=== PATIENT | male | born 1985 | race American Indian/Alaskan Native ===

== ENCOUNTER 2017-11-29 14:49 | Emergency (ER) | payer SELFPAY ==
[2017-11-29 14:54] VITALS: BP 140/99
[2017-11-29] MEDS ORDERED: TYLENOL #3 PO ONE (15:58)
[2017-11-29] MEDS ORDERED: XYLOCAINE 2%/ EPI 1:200,000 INFILTRATI ONE (15:58)
[2017-11-29] MEDS ORDERED: BOOSTRIX IM ONE (15:58)
--- NOTE | 2017-11-29 16:04 | Emergency Department Report ---
ED Laceration HPI - HPI Chief Complaint: Wound/Laceration Stated Complaint: RIGHT ARM LACERATION Time Seen by Provider: 11/29/17 15:53 Occurred When: Today Location: Upper Extremity Severity: mild Tetanus Status: Not up to Date Laceration Symptoms: Yes Pain, No Foreign Body Sensation, No Numbness, No Weakness Other History: This is a 32-year-old male nontoxic, well nourished in appearance , no acute signs of distress presents to the ED with c/o of laceration to right forearm. Patient stated he cut his hand on glass this afternoon. Patient denies any numbness, tingling, chest pain, shortness of breathe, fever, chills, headache, nausea, vomiting. Patient denies decreased sensation. Patient denies any allergies or PMH. Patient stated is not up to date with tetanus. ED Review of Systems ROS: Stated complaint: RIGHT ARM LACERATION Other details as noted in HPI Constitutional: denies: chills, fever Eyes: denies: eye pain, eye discharge, vision change ENT: denies: ear pain, throat pain Respiratory: denies: cough, shortness of breath, wheezing Cardiovascular: denies: chest pain, palpitations Endocrine: no symptoms reported Gastrointestinal: denies: abdominal pain, nausea, diarrhea Genitourinary: denies: urgency, dysuria Musculoskeletal: denies: back pain, joint swelling, arthralgia Skin: denies: rash, lesions Neurological: denies: headache, weakness, paresthesias Psychiatric: denies: anxiety, depression Hematological/Lymphatic: denies: easy bleeding, easy bruising ED Past Medical Hx - Past Medical History Previous Medical History?: No - Surgical History Past Surgical History?: No - Social History Smoking Status: Never Smoker Substance Use Type: Alcohol - Medications Home Medications: Home Medications Medication Instructions Recorded Confirmed Last Taken Type Ibuprofen [Motrin] 600 mg PO Q8H PRN #30 tablet 11/29/17 Unknown Rx Sulfamethoxazole/Trimethoprim 1 each PO BID #14 tablet 11/29/17 Unknown Rx [Bactrim DS TAB] traMADol [Ultram] 50 mg PO Q6HR PRN #12 tablet 11/29/17 Unknown Rx Laceration Physical Exam - Exam General: Vital signs noted. No distress. Alert and acting appropriately. GENERAL: The patient is a well-developed, well-nourished in no apparent distress. Patient is alert and acting appropriately for age. Alert and oriented 3, no apparent distress, normal gait, atraumatic. HEENT: Head is normocephalic and atraumatic. PERRL, Extraocular muscles are intact. Pupils are equal, round, and reactive to light and accommodation. Nares appeared normal. Mouth is well hydrated and without lesions. Mucous membranes are moist. Posterior pharynx clear of any exudate or lesions. Mouth is well hydrated and without lesions. Tonsils not erythematous or swollen. Uvula midline. Tongue elevated. Mucous members are moist. Posterior pharynx clear, no exudate or lesions. Patent airways. NECK: Supple. No carotid bruits. No lymphadenopathy or thyromegaly.nontender. No meningitic signs are noted. LUNGS: Clear to auscultation. Non labor breathing. No intercostal retractions. Symmetrical with respiration, no wheezing, no rales, or crackles. HEART: Regular rate and rhythm without murmur, rubs or gallops. No reproducible. S1, S2 present, regular rate and rhythm without murmur, no rubs, no gallops. ABDOMEN: Soft, nontender, and nondistended. Positive bowel sounds. No hepatosplenomegaly was noted. No guarding or rebound tenderness, negative epigastric bruit. Negative psoas sign, negative mcghee sign, negative McBurneys sign EXTREMITIES: Without any cyanosis, clubbing, rash, lesions or edema. Peripheral pulses intact. Capillary refill less than 2 seconds. Full range of motion bilaterally. NEUROLOGIC: Cranial nerves II through XII are grossly intact. Alert and oriented x 3. Normal gait. Symmetrical strength and sensation. Reflexes 2+ throughout. Cerebellar testing normal. GCS score of 15. PSYCHIATRIC: Normal affect with no suicidal or homicidal ideations. Skin: 4 cm laceration with flap. Tender to touch. No foreign body sensation. Wound Length (cm): 4 Laceration Location: Upper Extremity Full Body Front + Back: 1 - lac here Laceration Exam: Yes Normal Distal CMS, No Foreign Body, No Exposed Tendon, Vessel, or Nerve, No Tendon Injury ED Course Vital Signs 11/29/17 14:52 Temperature 98 F Pulse Rate 78 Respiratory 18 Rate Blood Pressure 140/99 O2 Sat by Pulse 100 Oximetry - Reevaluation(s) Reevaluation #1: 11/29/17 16:13 Patient is speaking in full sentences with no signs of distress noted. - Laceration /Wound Repair Right Arm Wound Location: upper extremity Wound Length (cm): 4 Wound's Depth, Shape: linear, flap Wound Explored: clean Irrigated w/ Saline (ccs): 40 Betadine Prep?: Yes Anesthesia: Lidocaine w/ Epi (2% with 1:200:000) Volume Anesthetic (ccs): 6 Wound Debrided: minimal Wound Repaired With: sutures Suture Size/Type: 4:0, proline Number of Sutures: 10 Layer Closure?: Yes Deep Layer Suture Size/Type: 4:0 (Vicryl) Number Deep Layer Sutures: 4 Sterile Dressing Applied?: Yes Progress: Under sterile field, I used Betadine to clean the area. I then used 40 mL of normal saline to flush the area. I then used 2% lidocaine with epi 1-200,000 and injected 6 mL to the wound. I used a 4-0 Vicryl to suture the deeper dermis with total of 4 sutures used. I then used a 4-0 Prolene to suture the superficial laceration. Number of stitches 10. I then applied a sterile 4 x 4 with tape. Minimal bleeding noted but is under control. Patient tolerated procedure well with no signs of distress. ED Medical Decision Making - Medical Decision Making This is a 32-year-old male that presents with laceration. Patient is stable and was examined by me. The laceration suturing has been performed and has been performed and patient tolerated well. Xray obtained and to r/o foreign body and dictated by the radiologist. Patient is notified of the xray results with no questions noted. A sterile dressing has been applied. Patient was educated on proper wound care. Patient is discharged with Bactrim and Ultram and was instructed not to operate any machinery while taking Ultram due to drowsiness. Patient was instructed to return in 10 days for suture removal. Patient was instructed to refer to Follow-up with a primary care doctor in 3-5 days or if symptoms worsen and continue return to emergency room as soon as possible. At time of discharge, the patient does not seem toxic or ill in appearance. No acute signs of distress noted. Patient agrees to discharge treatment plan of care. No further questions noted by the patient. Critical care attestation.: If time is entered above; I have spent that time in minutes in the direct care of this critically ill patient, excluding procedure time. ED Disposition Clinical Impression: Laceration Disposition: DC-01 TO HOME OR SELFCARE Is pt being admited?: No Does the pt Need Aspirin: No Condition: Stable Instructions: Suture Care (ED), Laceration (ED), Tramadol (By mouth), Sulfamethoxazole/Trimethoprim (By mouth), Ibuprofen (By mouth) Additional Instructions: Follow-up with a primary care doctor in 3-5 days or if symptoms worsen and continue return to emergency room as soon as possible. Return in 10 days for suture removal. Prescriptions: Ibuprofen [Motrin] 600 mg PO Q8H PRN #30 tablet PRN Reason: Pain Sulfamethoxazole/Trimethoprim [Bactrim DS TAB] 1 each PO BID #14 tablet traMADol [Ultram] 50 mg PO Q6HR PRN #12 tablet PRN Reason: Pain Referrals: PRIMARY MD TAYLOR [Primary Care Provider] - 3-5 Days KAT ANDERSON MD [Staff Physician] - 3-5 Days [facility] [place][Note 3] [Outside] - 3-5 Days [facility] [Outside] - 3-5 Days Forms: Work/School Release Form(ED)
--- NOTE | 2017-11-29 16:45 | XRay Report ---
FINAL REPORT PROCEDURE: AP view right forearm TECHNIQUE: Right forearm radiographs, AP views. CPT 05036 HISTORY: laceration with pain COMPARISON: No prior studies are available for comparison. FINDINGS: There is artifact from bandages overlying the medial aspect of the midforearm. Laceration appears to be present. No radiopaque foreign bodies are seen. Bony structures appear normal. Bone density appears normal. No fracture or abnormal periosteal reaction is visualized. IMPRESSION: Laceration visualized midforearm medially with bandaging artifact. No other abnormality is identified
== END 2017-11-29 18:22 | disposition home or self-care (01) ==
LOC: ED 14:49
DX: S41.111A Laceration without foreign body of right upper arm, initial encounter (principal); W26.8XXA Contact with other sharp object(s), not elsewhere classified, initial encounter; Y93.89 Activity, other specified; Y92.89 Other specified places as the place of occurrence of the external cause; Y99.8 Other external cause status
CPT/HCPCS: 90471; 90715

== ENCOUNTER 2019-08-28 15:56 | Emergency (ER) | payer SELFPAY ==
--- NOTE | 2019-08-28 17:39 | Event Note ---
ED Screening Note Date of service: 08/28/19 Time: 17:38 ED Screening Note: 34 y o male presents with cp,sob and bodyaches hes x 1.5 weeks no relief with otc meds This initial assessment/diagnostic orders/clinical plan/treatment(s) is/are subject to change based on patients health status, clinical progression and re- assessment by fellow clinical providers in the ED. Further treatment and workup at subsequent clinical providers discretion. Patient/guardian urged not to elope from the ED as their condition may be serious if not clinically assessed and managed. Initial orders include:
--- NOTE | 2019-08-28 18:21 | XRay Report ---
CHEST 2 VIEWS INDICATION / CLINICAL INFORMATION: pain. Chest pain COMPARISON: None available. FINDINGS: SUPPORT DEVICES: None. HEART / MEDIASTINUM: No significant abnormality. LUNGS / PLEURA: No significant pulmonary or pleural abnormality. No pneumothorax. ADDITIONAL FINDINGS: No significant additional findings. IMPRESSION: 1. No acute findings. Signer Name: Reyes Gant MD Signed: 08/28/2019 6:16 PM Workstation Name: [id number]
--- NOTE | 2019-08-28 21:25 | Emergency Department Report ---
Chief Complaint: Upper Respiratory Infection Stated Complaint: SICK Time Seen by Provider: 08/28/19 17:37 - HPI History of Present Illness: This 34-year-old male who presents to ED complaining of flulike symptoms for about a week. Patient states he has been experiencing intermittent coughing, runny nose and headaches. Patient also states he's been having body aches for the past 2-3 days. Patient does note that he had some dental work done last week and is currently taking antibiotics for. Patient states that symptoms get worse and not getting better. He denies fevers/chills/chest pain/shortness of breath/dizziness - ROS Review of Systems: All systems reviewed and negative - Exam Vital Signs: Vital Signs 08/28/19 17:38 Temperature 98.5 F Pulse Rate 80 Respiratory 18 Rate Blood Pressure 166/101 O2 Sat by Pulse 100 Oximetry Physical Exam: Alert and oriented 3. CTAB, no wheezing, Regular rate and rhythm, nontender to palpation to the chest. MSE screening note: Focused history and physical exam performed. Due to findings the following was ordered: ED Medical Decision Making - Radiology Data Radiology results: report reviewed, image reviewed No acute findings - Medical Decision Making This 34-year-old ED Disposition for MSE Clinical Impression: Upper respiratory infection Disposition: Z-07 MED SCREENING EXAM-LEFT Is pt being admited?: No Does the pt Need Aspirin: No Condition: Stable Instructions: Viral Syndrome (ED), Upper Respiratory Infection (ED) Additional Instructions: Follow-up with the primary care physician. Treatment [id number] Continue to take Motrin [id number]. Symptoms. Take Robitussin for coughing. Referrals: [facility] [Outside] - 3-5 Days [facility] [Outside] - 3-5 Days Forms: Work/School Release Form(ED) Time of Disposition: 21:34
[2019-08-28 22:20] VITALS: BP 139/93
== END 2019-08-28 22:23 | disposition home or self-care (01) ==
LOC: ED 15:56
DX: J06.9 Acute upper respiratory infection, unspecified (principal)
CPT/HCPCS: 71046